=== PATIENT | female | born 1960 ===

== ENCOUNTER 2016-11-25 08:22 | Day surgery (SDC) | payer MEDICAID ==
[2016-11-24 09:47] VITALS: BMI 41.8
[2016-11-25 08:56] LABS: BASO # 0.02 K/mm3 (0.0-2.0); BASO % 0.2 % (0.0-3.0); EOS # 0.3 (0.0-0.7); EOS % 3.1 % (1.5-5.0); GRAN # 4.66 (1.4-6.5); GRAN % 54.1 % (50.0-68.0); HEMATOCRIT 39.4 % (36.0-48.0); LYMPH % 35.1 % (22.0-35.0); MEAN CELL VOLUME 83.3 fl (80.0-105.0); MEAN CORPUSCULAR HEMOGLOBIN 27.5 pg (25.0-35.0); MEAN PLATELET VOLUME 9.7 fl (7.0-11.0); MONO # 0.7 (0.1-0.6); MONO % 7.5 % (1.0-6.0); WHITE BLOOD COUNT 8.6 10^3/ul (4.5-11.0)
[2016-11-25 09:02] LABS: BLOOD UREA NITROGEN 16 mg/dL (7-21); CALCIUM 9.2 mg/dL (8.4-10.5); CARBON DIOXIDE 29 mmol/L (21-33); CHLORIDE 106 mmol/L (98-107); CHOLESTEROL 113 mg/dL (130-200); GFR AFRICAN-AMERICAN > 60; GLUCOSE,RANDOM 105 mg/dL (70-110); POTASSIUM 4.1 mmol/L (3.6-5.0); SODIUM 145 mmol/L (132-148)
[2016-11-25 09:07] LABS: INR 1.01 (0.93-1.08); PARTIAL THROMBOPLASTIN TIME 28.1 Seconds (23.7-30.8)
[2016-11-25 09:13] VITALS: TEMP 98.5
[2016-11-25] MEDS ORDERED: Midazolam 2 MG/2 ML VIAL ONE (09:16)
[2016-11-25] MEDS ORDERED: Lidocaine 2% Inj (20ml) ONE (09:16)
[2016-11-25] MEDS ORDERED: Iohexol 350mgl/ml 50 ML ONE (09:17)
[2016-11-25] MEDS ORDERED: Iodixanol 320 MG/ML 200 ML BOTTLE IV ONE (09:17)
[2016-11-25] MEDS ORDERED: Sodium Chloride 0.45% 1,000 ML IV SCH (11:00)
[2016-11-25 12:19] VITALS: O2SAT 99
[2016-11-25 13:22] VITALS: RESP 16
[2016-11-25 15:09] VITALS: BP 129/73; PULSE 77
--- NOTE | 2016-11-25 22:44 | CARD ---
APPROVED REPORT EKG Measurement Heart [id number] <Conclusion> Normal sinus rhythm Normal ECG
--- NOTE | 2016-12-01 09:15 | CARD ---
APPROVED REPORT Procedure(s) performed: Left Heart Catheterization Complete Heart Catheterization Left Ventriculogram HISTORY 60%. (EF Method: RADIONUCLIDE), previous CHF, peripheral vascular disease, chronic lung disease, hypertension , dyslipidemia . INDICATION The indication(s) include : positive stress test, stable angina (>72 hrs to = 7 days), dyspnea. CASE TECHNIQUE The patient was brought electively to the Cardiac Catheterization Laboratory in a fasting state and was prepped and draped in a sterile manner. The right femoral groin was infiltrated with 2% Lidocaine subcutaneous anesthesia. A 5 Fr x 11 cm Zaria sheath was inserted using coronary diagnostic catheters. The left coronary system was accessed and visualized with a Diagnostic catheter. The right coronary system was accessed and visualized with a Diagnostic catheter. The left ventricle was accessed and visualized with a Diagnostic catheter. Left ventricular/Aortic Valve gradient assessed on pullback. Left ventriculogram was performed in PRUITT projection. The patient tolerated the procedure well and there were no complications associated with the procedure. Vessel Analysis The patient's coronary anatomy is right dominant. The left main coronary artery is a medium size vessel without significant stenosis. The left main trifurcates to the left anterior descending, circumflex, and ramus. The left anterior descending artery is a large size vessel with intimal irregularities. The circumflex artery is a medium size vessel with intimal irregularities. The right coronary artery is a medium size vessel with intimal irregularities. The right posterolateral branch is a small size vessel . There is a 50% stenosis in the mid segment. Left Ventricle The left ventricle is normal in size with general hypokensis contractility. The left ventricular ejection fraction is estimated to be 40%. Conclusion Small vessel CAD. Mild depressed left ventricular funtion. Recommendations Aggressive Medical Therapy Medical Therapy reevaluate EF with muga
== END 2016-11-25 15:40 | disposition home or self-care (01) ==
LOC: CATH 08:22
PROVIDERS: ATTEND Internal Medicine Cardiovascular Disease
DX: I25.10 Atherosclerotic heart disease of native coronary artery without angina pectoris (principal); I11.0 Hypertensive heart disease with heart failure; I50.9 Heart failure, unspecified; I73.9 Peripheral vascular disease, unspecified; J44.9 Chronic obstructive pulmonary disease, unspecified; E78.5 Hyperlipidemia, unspecified
CPT/HCPCS: 36415; 80048; 80061; 85025; 85610; 85730; 86850; 86900; 93005; 93458; 99152; C1713; C1769; C1887 ×2; J1644; J2250; J3010; J7030; J7040; Q9967